=== PATIENT | male | born 1965 | race African-American/Black ===

== ENCOUNTER → 2016-12-16 | Outpatient (CLI) | payer OTHER ==
--- NOTE | 2016-12-17 08:41 | SPLIT NIGHT TECHNICIAN REPORT ---
[facility] Split Night Polysomnogram - [employer] Report Study date: 12/16/2016 Referring Physician: Cammy Tse Name: CARMELO MAYFIELD [employer]: CUAUHTEMOC Jones. Date of : 1965 Height: 51 years, Height 6' 1" Sex: Male Weight: 235 lbs Age: 51 BMI: Medications: 31 Atorvastatin 40 mg, HCTZ 25 mg, Metoprolol Tartrate 50 mg, Omeprazole 20 mg, Patient History 51 yr. old male here for a diagnostic sleep study. Patient complains of loud snoring and witnessed apneas. Patients [place] Sleepiness Scale Score is 6/24. Parameters Monitored NPSG: E1-M2, E2-M1, Fp1-M2, Fp2-M1, F3-M2, F4-M2, F4-M1, C3-M2, C4-M2, C4-M1, O1-M2, O2-M2, O2-M1, T3-M2, T4-M1, P3-M2, P4-M1, CHIN1, CHIN2, HR, EKG, Legs, PFLOW, SNOR, FLOW, CFLOW, Tidal Volume, THOR, ABDO, SpO2, PLTH, CPRESS, ETCO2 Wave, ETCO2, pH SLEEP SUMMARY DATA DIAGNOSTIC TREATMENT Lights Out: 10:15:15 PM 12:59:45 AM Lights On: 12:49:45 AM 5:59:45 AM Total Recording Time (TRT): 154.0 min. 300.5 min. Total Sleep Time (TST): 137.5 min. 252.0 min. NREM Time: 122.5 min. 159.0 min. REM Time: 15.0 min. 93.0 min. Sleep Period Time (SPT): 147.5 min. 283.5 min. Sleep Efficiency (SE): 89 % 84 % Sleep Latency: 7.0 min. 16.5 min. Arousal Index: 5.7 1.7 PAP Treatment Levels: 4, 5 * Optimal Pressure(s) SLEEP STAGING DATA DIAGNOSTIC TREATMENT Duration (min) TST % Duration (min) TST % Stage Wake: 16.5 min. -- 48.0 min. -- WASO: 10.0 min. -- 31.5 min. -- NREM: 122.5 min. 89 % 159.0 min. 63 % Stage N1: 15.0 min. 11 % 16.5 min. 7 % Stage N2: 103.5 min. 75 % 89.5 min. 36 % Stage N3: 4.0 min. 3 % 53.0 min. 21 % REM: 15.0 min. 11 % 93.0 min. 37 % POSITIONAL DATA Event Count Index Event Count Index Supine: 80 70 0 0.0 Supine NREM: 80 69.9 0 0.0 Supine REM: N/A N/A 0 0 Non-Supine: 0 0.0 5 1.5 Non-Supine NREM: 0 0.0 5 1.9 Non-Supine REM: 0 0.0 0 0.0 AROUSAL SUMMARY DATA: Event Count Index Event Count Index Apnea Arousals: 1 3.1 0 0.2 Hypopnea Arousals: 11 4.8 1 0.2 Snore Arousals: 3 1.3 2 0.5 PLM Arousals: 0 0.0 1 0.2 Non-Specific Arousals: 1 0.4 1 0.2 Total Arousals: 13 5.7 7 1.7 MYOCLONUS (PLM) Event Count Index Event Count Index PLM: 0 0.0 5 1.2 PLM AROUSAL: 0 0.0 1 0.2 PLM W/O AROUSAL 0 0.0 4 1.0 PLM W/RESP EVENT 0 0.0 0 0.0 MYOCLONUS (PLM) Event Count Index Event Count Index LM: 0 3.1 24 5.7 LM AROUSAL: 0 0.0 2 0.5 LM W/O AROUSAL LM W/RESP EVENT LM NON SPECIFIC 4 1.7 26 6.2 HEART RATE DATA DIAGNOSTIC TREATMENT Sleep (bpm): 60 62 REM (bpm): 97 95 NREM (bpm): 93 94 Tachycardia Count: 0 0 Tachycardia Duration: 0.00 0 Bradycardia Count: 0 0 Bradycardia Duration: 0.00 0 DIAGNOSTIC PORTION TREATMENT PORTION RESPIRATORY DATA Event Count Index Event Count Index AHI: -- 34.9 -- 1.2 RDI: -- 34.9 -- 1 Obstructive Apnea: 6 2.6 0 0.0 Central Apnea: 1 0.4 1 0.2 Mixed Apnea: 0 0.0 0 0.0 Hypopnea: 73 31.9 4 1.0 RERA: 0 0.0 0 0.0 Total Apneas: 7 3.1 1 0.2 RESPIRATORY DATA REM NREM SLEEP REM NREM SLEEP Supine Position: Obstructive Apneas: N/A 6 6 0 0 0 Central Apneas: N/A 1 1 0 0 0 Mixed Apneas: N/A 0 0 0 0 0 Hypopneas: N/A 73 73 0 0 0 RERA N/A 0 0 0 0 0 Total Supine Events: N/A 80 80 0 0 0 Supine AHI: N/A 69.9 70 0 0.0 0.0 Supine RDI: N/A 69.9 69.9 0.0 0.0 0.0 REM NREM SLEEP REM NREM SLEEP Non-Supine Position: Obstructive Apneas: 0 0 0 0 0 0 Central Apneas: 0 0 0 0 1 1 Mixed Apneas: 0 0 0 0 0 0 Hypopneas: 0 0 0 0 4 4 RERA 0 0 0 0 0 0 Total Supine Events: 0 0 0 0 5 5 Supine AHI: 0.0 0.0 0.0 0.0 1.9 1.5 Supine RDI: 0.0 0.0 0.0 0.0 1.9 1.5 OXYGEN DESTAURATION DATA: Event Count Index Event Count Index REM Desaturations: 0 0.0 3 1.9 NREM Desaturations: 74 36.2 7 2.6 SNORE DATA DIAGNOSTIC TREATMENT Snore Time: 1.0 1:16:15 AM Snore TST%: 1 1 Snore Arousal Count: 3 2 Snore Arousal Index: 1.3 0.5 Desaturation Event Summary: Minimum %SpO2 Event Count Mean/Min/Max Duration(sec.) Desaturation Index % Time In Bed > 90 99 28.8 / 9.8 / 57.8 14.0 93.9 86 - 90 3 12.1 / 4.0 / 17.0 7.1 5.7 81 - 85 0 N/A 0.0 0.5 76 - 80 0 N/A 0.0 0.0 71 - 75 0 N/A 0.0 0.0 66 - 70 0 N/A 0.0 0.0 61 - 65 0 N/A 0.0 0.0 56 - 60 0 N/A 0.0 0.0 51 - 55 0 N/A 0.0 0.0 < 50 0 N/A 0.0 0.0 OXYGEN SATURATION DATA DIAGNOSTIC TREATMENT SpO2 Mean Sleep: 93 % 94 % SpO2 Mean REM: 97 % 95 % SpO2 Mean NREM: 93 % 94 % SpO2 Minimum Sleep: 82 % 88 % SpO2 Minimum REM: 95 % 91 % SpO2 Minimum NREM: 82 % 88 % Time Below 90% (TST): 13.3 0.2 Time Below 88% (TST): 3.8 0.0 Total REM NREM Awake <50% 0.0 min. 0.0 min. 0.0 min. 0.0 min. 51 - 60% 0.0 min. 0.0 min. 0.0 min. 0.0 min. 61 - 70% 0.0 min. 0.0 min. 0.0 min. 0.0 min. 71 - 80% 0.0 min. 0.0 min. 0.0 min. 0.0 min. 81 - 90% 27.7 min. 0.0 min. 23.7 min. 3.9 min. 91 - 100% 423.4 min. 107.9 min. 256.4 min. 59.0 min. Average 94 95 93 94 Minimum SpO2 82 91 82 84 Desaturation Event Index 13.2 1.7 17.3 14.9 # Desat. Events below 89% 29 N/A 26 3 Time(%) with Saturation below 89% 1.7 0.0 1.4 0.3 Time(min.) with Saturation below 89% 7.7 0.0 6.2 1.5 Recording [employer] Comments: Mr. Mayfield qualified for a split night sleep study. Mr. Mayfield slept in the right, left, and supine positions. No cardiac arrhythmia or PLMs noted. No bruxism noted. Snoring was noted and scored as a 2 on a scale of 0 through 5. (0=no snoring, 5=snoring loud enough to be heard through a closed door or down the mathews way) At 1:00 AM, Mr. Mayfield met specific Split-Night criteria during the diagnostic portion of this study. CPAP was initiated at +4 CMH2O room air and up-titrated to an optimal level of +5 CMH2O Cflex1, which nearly eliminated all respiratory events and snoring. Mr. Mayfield complained it was difficult to breathe, and came to the conclusion the air was too warm and the humidifier was removed at 3:00 am. A Still and Paykel Eson 2, was used during titration. Mr. Mayfield awoke to use the restroom once during the night. Mr. Mayfield stated, " I had a good night and slept well " The final report will be interpreted and signed by a sleep physician. The completed physician report will then be placed in the patient medical record. Therapy Event: Therapy (cm H20) 0 4 5 Total Time at Pressure (min.) 154.0 138.3 161.7 TST at Pressure (min.) 137.5 96.3 155.7 # Periods 1 1 1 Sleep Onset (min.) 7.0 16.5 0.0 REM Onset (min.) 59.5 74.0 58.2 Sleep Efficiency % 89 69 96 Wakefulness (%) 10.7 30.4 3.7 Wakefulness (min.) 16.5 42.0 6.0 NREM 1 (%) 9.7 8.0 3.4 NREM 1 (min.) 15.0 11.0 5.5 NREM 2 (%) 67.2 24.1 34.8 NREM 2 (min.) 103.5 33.3 56.2 NREM 3 (%) 2.6 15.6 19.5 NREM 3 (min.) 4.0 21.5 31.5 REM (%) 9.7 22.1 38.6 REM (min.) 15.0 30.5 62.5 # Arousals 13 4 3 Arousal Index 5.7 2.5 1.2 # Snore 28 4 5 Snore Index 12.2 2.5 1.9 AHI 34.9 2.5 0.4 AHI Supine 69.9 N/A 0.0 AHI Non-Supine 0.0 2.5 0.6 NREM AHI 39.2 3.6 0.6 REM AHI 0.0 0.0 0.0 RDI 34.9 2.5 0.4 # Obstructive 6 0 0 # Central Ap 1 1 0 # Mixed 0 0 0 # Hypopneas 73 3 1 RERAS 0 0 0 Total Respiratory Events 80 4 1 Time Below SpO2 89.00% (min.) 6.1 0.1 0.0 Mean NREM SpO2 (%) 93 94 94 Mean REM SpO2 (%) 97 95 95 Mean Sleep SpO2 (%) 93 94 94 Min NREM SpO2 (%) 82 88 91 Min REM SpO2 (%) 95 93 91 Position Supine (min.) 68.7 0.0 56.7 Position Non-supine (min.) 68.8 96.3 99.0 LM Index Sleep 3.1 10.0 5.0 LM Index NREM 2.4 0.0 0.0 LM Index REM 8.0 31.5 12.5 Mean Heart Rate (bpm) 60 63 61 Min Heart Rate (bpm) 54 56 54
--- NOTE | 2016-12-26 14:24 | Sleep Study ---
Sleep Study Report Date of Service: 12/16/2016 Sleep Study Report Clinical data: The patient is a 51-year-old male referred by Sanchez Tse. He has a BMI of 31. The patient has snoring, observed apneas, and chronic fatigue. This is an in-lab split night sleep study. His [place] score is 6 out of a possible 24. Sleep architecture: During the diagnostic portion of the study the sleep period time was 147.5 minutes. The total sleep time was 137.5 minutes. Sleep efficiency was borderline normal at 89%. The sleep latency was normal at 7 minutes. Sleep consisted of stage N1 11%, stage N2 75%, stage N3 3%, and stage REM 11%. During the therapeutic portion of the study the patient's events were treated with nasal CPAP. The sleep period time was 283.5 minutes. The total sleep time was 252.0 minutes. The sleep efficiency was 84%. The sleep latency was 16.5 minutes. Sleep consisted of stage N1 7%, stage N2 36%, stage N3 21%, and stage REM 37%. Arousal data: During the diagnostic portion of the study the patient had 13 arousals including 1 apnea arousal, 11 hypopnea arousals, 3 snoring arousals, and 1 nonspecific arousals. The arousal index was 5.7. During the therapeutic portion of the study the patient had a total of 7 arousals including 1 hypopnea arousal, 2 snoring arousals, 1 PLM arousal, and 1 nonspecific arousal. The arousal index was 1.7. PLM data: During the diagnostic portion of the study the patient had no periodic limb movements. During the therapeutic portion of the study the patient had 5 periodic limb movements for an index of 1.2. There was 1 arousal associated with limb movements for a PLM arousal index of 0.2. EKG: The underlying cardiac rhythm was normal sinus. The cardiac rates ranged from 60 to 94 beats per minute. No arrhythmia was noted. Respiratory data: During the diagnostic portion of the study the patient had a total of 80 respiratory events including 6 obstructive apneas, 1 central apnea, and 73 hypopneas. Hypopneas were scored according to the 4% desaturation rule. The apnea-hypopnea index was moderately elevated at 34.9 events per hour. During the therapeutic portion of the study the patient was treated with nasal CPAP. He had a total of 5 respiratory events including 1 central apnea and 4 hypopneas. The apnea-hypopnea index was 1.2. Oximetry data: During the diagnostic portion of the study the mean saturation was 93%. The minimum saturation was 82%. There was a total of 3.8 minutes with saturations less than 88%. During the therapeutic portion of the study the mean saturation was 94%. The minimum saturation was 88%. There was 0 time with saturations less than 88%. Blending Machine Operator comments: The patient qualified for split night sleep study. He slept on the right, left , and supine positions. No cardiac arrhythmia noted. No bruxism noted. Snoring was noted and scored as a 2 on a scale of 1 through 5. At 1:00 a.m. the patient met specific split night criteria during the diagnostic portion of the study. CPAP was initiated at 4 cm and up titrated to a optimal level of 5 cm with C flex 1. This nearly eliminated all respiratory events and snoring. Patient did complain that was difficult to breathe. He felt the air was 2 warm and the humidifier was removed at 3:00 a.m. a Still Paykel Eson 2 mask was used during the titration. He awoke once to use the restroom. Following the study he indicated he had a good night sleep and slept well. Impressions: 1. Obstructive sleep [id number] with nasal CPAP at 5 cm Comments: The patient had moderate sleep apnea with an apnea-hypopnea index of 34.9. Because of this a split study was performed. He was treated with nasal CPAP at a final pressure of 5 cm. The apnea-hypopnea index during the CPAP study was only 1.2. His sleep was well consolidated. He seemed to tolerate it well. He was bothered by the warmth of the humidifier. REM rebound was noted. During the therapeutic portion of the study 37% of the time was in REM sleep. Oxygenation was normal at the final pressure. Recommendations: 1. It is suggested that the patient be started on nasal CPAP at 5 cm. 2. It is suggested that he be ordered a Still and Paykel Eson 2 mask. 3. It is advised that the patient avoid sleeping in the supine position as there is typically more respiratory events when supine. 4. The patient has an elevated body mass index of 31. A weight reduction program is advised. 5. The patient should be seen in follow-up between day 31 day 90 after receiving his CPAP. Copies To 1: Chauncey Allan DO; Ketty Willingham.
== END | disposition home or self-care (01) ==
LOC: C.NEUR 20:00
PROVIDERS: ATTEND Nurse Practitioner Family
DX: R53.82 Chronic fatigue, unspecified (principal)